=== PATIENT | male | born 1945 | race Caucasian/White ===

== ENCOUNTER → 2016-10-26 | Emergency (ER) | payer MEDICARE, OTHER ==
[~2016-10-26] VITALS: Ht 180.3 cm; Wt 72.6 kg
[~2016-10-26] MED LIST: ACCU CHEK MISC; ACCU-CHEK AVIV1 EAC1 MISC; ACYCLOVIR800 MG PO; ALDARA0.25 GM XX; AMLODIPINE BESY10 MG PO; AMLODIPINE BESYL5 MG PO; ASPIRIN81 MG PO; ATIVAN0.5 MG PO; ATIVAN1 MG PO; BUPROPION XL150 MG PO; CALCIUM 600 +1 EAC1 PO; CEPHALEXIN500 MG PO; CETIRIZINE HCL10 MG PO; CLOTRIMAZOLE-BE15 GM TOP; COZAAR25 MG PO; CVS LUBRICATING15 ML OPTH; CYMBALTA60 MG PO; DESONIDE15 GM TOP; DULOXETINE HCL60 MG PO; FINASTERIDE5 MG PO; FLUTICASONE PRO16 GM NS; LANCET DEVICE1 EACH MISC; LYRICA25 MG PO; LYRICA75 MG PO; METOPROLOL TART50 MG PO; MULTIVITAMINS1 EAC7 PO; NORCO 5-325 TA1 EACH PO; OMEPRAZOLE20 MG PO; PANTOPRAZOLE SO40 MG PO; POTASSIUM CHLO20 MEQ PO; PRAVASTATIN SOD20 MG PO; SEROQUEL25 MG PO; TAMSULOSIN HCL0.4 MG PO; TRAZODONE HCL50 MG PO; VITAMIN D5000 UNIT PO; ZOFRAN ODT4 MG SL
== END ==
LOC: ED 13:20
DX: K52.9 Noninfective gastroenteritis and colitis, unspecified (principal); E78.00 Pure hypercholesterolemia, unspecified; E78.5 Hyperlipidemia, unspecified; F32.9 Major depressive disorder, single episode, unspecified; F41.9 Anxiety disorder, unspecified; I48.91 Unspecified atrial fibrillation; J44.9 Chronic obstructive pulmonary disease, unspecified; K21.9 Gastro-esophageal reflux disease without esophagitis; I12.9 Hypertensive chronic kidney disease with stage 1 through stage 4 chronic kidney disease, or unspecified chronic kidney disease; E11.22 Type 2 diabetes mellitus with diabetic chronic kidney disease; N18.9 Chronic kidney disease, unspecified; E11.40 Type 2 diabetes mellitus with diabetic neuropathy, unspecified; F17.200 Nicotine dependence, unspecified, uncomplicated; Z86.73 Personal history of transient ischemic attack (TIA), and cerebral infarction without residual deficits; Z88.1 Allergy status to other antibiotic agents; Z88.8 Allergy status to other drugs, medicaments and biological substances; Z89.611 Acquired absence of right leg above knee; Z79.899 Other long term (current) drug therapy
CPT/HCPCS: 80053; 85025; 99283

== ENCOUNTER 2017-09-05 16:03 | Emergency (ER) | payer MEDICARE, OTHER ==
[~2017-09-05] VITALS: Ht 180.3 cm; Wt 72.6 kg
[2017-09-05] MEDS ORDERED: REMERON15 MG PO (16:25)
--- NOTE | 2017-09-06 14:14 | EKG ---
[facility] [address] [facility] [place] [address] Signed Normal sinus rhythm Normal ECG When compared with ECG of 04-SEP-2016 21:30, T wave inversion no longer evident in Inferior leads Confirmed by JESUS IVY MD ([id number]) on 09/06/2017 2:13:47 PM Electronically Signed By: JESUS IVY MD 09/06/17 1414 PATIENT NAME: ALBERTO ROLLINS Electrocardiogram DATE OF : 45 PHYSICIAN: JESUS IVY MD REPORT #: [id number] REPORT IS CONFIDENTIAL AND NOT TO BE RELEASED WITHOUT AUTHORIZATION
== END 2017-09-05 18:50 | disposition home or self-care (01) ==
LOC: ED 16:03
DX: R41.0 Disorientation, unspecified (principal); R50.9 Fever, unspecified; E11.9 Type 2 diabetes mellitus without complications; F17.200 Nicotine dependence, unspecified, uncomplicated; Z88.8 Allergy status to other drugs, medicaments and biological substances; Z79.899 Other long term (current) drug therapy
CPT/HCPCS: 71045; 80053; 81001; 83605; 85025; 93005; 93010; 96360; 96361; 99284; J7030

== ENCOUNTER 2017-12-13 17:27 | Inpatient (IN) | payer MEDICARE, OTHER ==
[~2017-12-13] VITALS: Ht 180.3 cm; Wt 84.1 kg
[~2017-12-13 17:27] MED LIST changes: +BUPROPION HCL150 M2 PO; -BUPROPION XL150 MG PO; -COZAAR25 MG PO; +COZAAR50 MG PO; -CVS LUBRICATING15 ML OPTH; +KLOR-CON 1010 MEQ PO; +METOPROLOL TART25 MG PO; -METOPROLOL TART50 MG PO; -MULTIVITAMINS1 EAC7 PO; +MULTIVITAMINS1 EAC8 PO; -POTASSIUM CHLO20 MEQ PO; +REFRESH LIQUIGE15 ML OU; +REMERON15 MG PO; +VITAMIN D1000 UNI1 PO; -VITAMIN D5000 UNIT PO
[2017-12-13] MEDS ORDERED: ASPIR-TRIN325 MG PO (17:37)
[2017-12-13] MEDS ORDERED: FUROSEMIDE40 MG PO (17:38)
[2017-12-13] MEDS ORDERED: LYRICA150 MG PO (17:39)
[2017-12-13] MEDS ORDERED: OMEPRAZOLE20 MG PO (17:40)
[2017-12-13] MEDS ORDERED: PRESERVISION A1 EAC3 PO (17:41)
[2017-12-13] MEDS ORDERED: PROBIOTIC1 EAC3 PO (17:42)
--- NOTE | 2017-12-13 22:30 | NUR ---
PATIENT ARRIVED TO 129 VIA STRETCHER. TRANSFERED TO BED WITH ASSIST FROM HALEY TAPIA AND HALEY GALLO. PATIENT NOW RESTING IN BED, BREATHING IS EVEN AND UNLABORED ON ROOM AIR. ORIENTED TO ALL EXCEPT THE YEAR. CARRANZA PRESENT, DRAINING YELLOW URINE WITH SEDEMENT. IV SITES, INTACT, IVF STARTED. PATIENT DENIES PAIN AT THIS TIME, OTHER THAN OCCASIONAL "PHANTOM PAIN" IN RLE. PATIENT DENIES NEEDS AT THIS TIME. CALL LIGHT WITHIN REACH, BED ALARM ON.
--- NOTE | 2017-12-14 01:13 | NUR ---
PATIENT RESTING COMFORTABLY IN BED, BREATHING IS EVEN AND UNLABORED. DENIES NEEDS AT THIS TIME. CALL LIGHT WITHIN REACH, BED ALARM ON.
--- NOTE | 2017-12-14 01:27 | NUR ---
UPDATED DR. IVY REGARDING PATIENT'S PHANTOM PAIN IN RIGHT LOWER LIMB. PATIENT ALREADY HAS RECEIVED LYRICA, NO NEW ORDERS AT THIS TIME.
--- NOTE | 2017-12-14 04:31 | NUR ---
PATIENT RESTING IN BED, BREATHING IS EVEN AND UNLABORED. DENIES NEEDS AT THIS TIME. CALL LIGHT WITHIN REACH, BED ALARM ON.
--- NOTE | 2017-12-14 07:05 | NUR ---
PATIENT RESTING IN BED, BREATHING IS EVEN AND UNLABORED. CALL LIGHT WITHIN REACH, BED ALARM ON.
--- NOTE | 2017-12-14 08:00 | NUR ---
ASSESSMENT DONE. IS SOMEWHAT CONFUSED TO PLACE, DAY, EVENT,TIME. PATIENT STATES HE HAS BEEN HERE FOR 3 DAYS. TOLD PATIENT HE WAS ADMITTED TO HOSPITAL LAST NIGHT. IS ADAMENT HE WAS ADMITTED [address] IVY IS AWARE. TALKED WITH PATIENT ABOUT PLAN OF CARE, WILL REINFORCE ORIENTATION THROUGH DAY. IS FORGETFUL.
--- NOTE | 2017-12-14 08:30 | NUR ---
DR. IVY HERE TO SEE PATIENT, ORDERS RECIEVED. CARRANZA CATH DC'D, IVF DECREASED TO 75ML/HR.
--- NOTE | 2017-12-14 09:30 | NUR ---
UP TO W/C TO GO TO BR. HAD LARGE FORMED STOOL, BACK TO W/C AND TO BED WITH ASSIST. SPONGE BATH GIVEN WHILE UP.
--- NOTE | 2017-12-14 11:30 | NUR ---
SLEEPING, NO DISTRESS NOTED. IVF PATENT.
--- NOTE | 2017-12-14 11:56 | NUR ---
PT HAS HAD A BUSY, TRYING MORNING. HE IS ASLEEP AT THE MOMENT-RN SKYLAR REQUESTED I NOT WAKE HIM AT THIS TIME. WILL FOLLOW NEEDED
--- NOTE | 2017-12-14 12:00 | NUR ---
AWAKE ASSESSMENT DONE, RATES PAIN 4/10 IN RIGHT LEG. IS COOPERATIVE AT THIS TIME.
--- NOTE | 2017-12-14 12:33 | NUR ---
POSITIVE BLOOD CULTURES RECIEVED. GROWTH OF GRAM POSITIVE COCCI IN ANAEROBIC AND AEROBIC BOTTLE, DR IVY IS AWARE.
--- NOTE | 2017-12-14 12:50 | NUR ---
PATIENT DAUGHTER HERE. UPDATE REGARDING HER FATHERS HEALTH GIVEN. .
--- NOTE | 2017-12-14 13:31 | NUR ---
BLOOD CULTURES x 2 REPEATED.
--- NOTE | 2017-12-14 14:00 | NUR ---
echo being done at bedside.
--- NOTE | 2017-12-14 14:30 | NUR ---
ECHO COMPLETE. PATIENT IS W/O C/O. IVF INFUSING AT 75 ML/HR.
--- NOTE | 2017-12-14 16:00 | NUR ---
ASSESSMENT DONE, NO CHANGES.
--- NOTE | 2017-12-14 17:10 | NUR ---
TYLENOL 500 MG PO GIVEN FOR PAIN RIGHT STUMP.
[2017-12-14] MEDS ORDERED: TYLENOL EXTRA500 MG PO (17:48)
[2017-12-14] MEDS ORDERED: CAPSAICIN42.5 GM TOP (17:50)
[2017-12-14] MEDS ORDERED: COLACE100 MG PO (17:51)
[2017-12-14] MEDS ORDERED: VENTOLIN HFA18 GM INH (17:53)
[2017-12-14] MEDS ORDERED: ZINC OXIDE57 GM TOP (17:54)
--- NOTE | 2017-12-14 17:55 | NUR ---
MED REC COMPLETE
--- NOTE | 2017-12-14 18:00 | NUR ---
TOOK DINNER WELL. C/O PAIN IN R LEG. THIS IS COMES AND GOES.
--- NOTE | 2017-12-14 19:23 | NUR ---
REPORT GIVEN TO NEXT SHIFT.
--- NOTE | 2017-12-14 20:00 | NUR ---
PATIENT SITTING UP IN BED WATCHING TV, BREATHING IS EVEN AND UNLABORED. REPORTS 8/10 PAIN IN RIGHT LIMB AT TIMES. PRN TOPICAL ADMINISTERED. DENIES FURTHER NEEDS. ASSESSMENT AND VITALS DONE. CALL LIGHT WITHIN REACH.
--- NOTE | 2017-12-14 22:00 | NUR ---
PATIENT REPORTS THAT TOPICAL HAS IMPROVED PAIN IN LEG MILDLY, REPORTS CONTINUED PAIN. PRN TYLENOL GIVEN. DENIES FURTHER NEEDS. CALL LIGHT WITHIN REACH.
--- NOTE | 2017-12-15 01:00 | NUR ---
PATIENT RESTING COMFORTABLY IN BED, BREATHING IS EVEN AND UNLABORED. FLACC SCORE OF 0. ASSESSMENT AND VITALS DONE. PATIENT DENIES NEEDS AT THIS TIME. CALL LIGHT WITHIN REACH.
--- NOTE | 2017-12-15 03:27 | NUR ---
PATIENT RESTING IN BED, BREATHING IS EVEN AND UNLABORED. FLACC SCORE OF 0. CALL LIGHT WITHIN REACH.
--- NOTE | 2017-12-15 04:24 | NUR ---
PATIENT RESTING IN BED, BREATHING IS EVEN AND UNLABORED. REPORTS INTERMITTENT 8/10 PAIN IN RIGHT LEG, PRN TYLENOL GIVEN. PATIENT DENIES FURTHER NEEDS. CALL LIGHT WITHIN REACH.
--- NOTE | 2017-12-15 06:30 | NUR ---
LINEN CHANGE DONE DUE TO INCONTINENCE OF URINE. PATIENT TRANSFERED TO WHEELCHAIR WITH 1PA. NOW RESTING IN BED AGAIN, BREATHING IS EVEN AND UNLABORED. DENIES FURTHER NEEDS. CALL LIGHT WITHIN REACH.
--- NOTE | 2017-12-15 08:43 | NUR ---
PT GIVEN 500MG TYLENOL FOR PAIN, AND THEN APPLIED CAPSAICIN CREAM TO RIGHT STUMP FOR PAIN.
--- NOTE | 2017-12-15 09:47 | NUR ---
PT UP IN WC WITH PTOUT TO THE M/S UNIT AND BACK.
--- NOTE | 2017-12-15 10:57 | NUR ---
PT UP TO THE BATHROOM, PASSING GAS AND HAVING AN BM AT THIS TIME. PT IS ABLE TO TRANSFER SELF FROM BED TO WC.
--- NOTE | 2017-12-15 11:25 | NUR ---
PT UP TO BATHROOM HAD BM, BUT PT DOES NOT CLEAN SELF UP WELL. ASSISTATED PT WITH THIS TASK. BACK TO BED AND CALL LIGHT WITHIN REACH. MONITOR REMOVED FROM PT AT THIS TIME ALSO DUE TO PT WILL BE TRANSFERED WITHOUT A TELE.
--- NOTE | 2017-12-15 12:32 | NUR ---
PT DAUGHTER INTO SEE PT AT THIS TIME. ALL QUESTIONS ANSWERED AT THIS TIME.
--- NOTE | 2017-12-15 13:39 | NUR ---
PT APPEARS TO BE SLEEPING AT THIS TIME.
--- NOTE | 2017-12-15 14:35 | NUR ---
PT MEDICATED WITH TYLENOL FOR PAIN AT THIS TIME.
--- NOTE | 2017-12-15 15:31 | NUR ---
PT MEDICATED WITH TYLENOL 500MG PO AND NOW IT APPEARS THAT PT IS ASLEEP A THIS TIME.
--- NOTE | 2017-12-15 16:01 | NUR ---
REPORT CALLED TO DARNELL ALL QUESTIONS ANSWERED AT THIS TIME. PT WILL BE MOVING TO ROOM 116 VIA . ALL PERSONAL BELONGINGS SENT WITH PT.
--- NOTE | 2017-12-15 16:19 | NUR ---
PT WHEELED HIMSELF IN THE WC TO ROOM 116 THEN TRANSFERED SELF TO THE CHAIR. M/S STAFF PRESENT AND ALL ADDITIONAL QUESTIONS ANSWERED.
--- NOTE | 2017-12-15 16:20 | NUR ---
PT ARRIVED TO UNIT VIA WHEELCHAIR AND TRANFERED TO CHAIR W/O DIFFICULTY. VITAL SIGNS OBTAINED. PT A&O X3, HUGO RN REPORTS PT CAN BE FORGETFULL AT TIMES. REPIRATIONS EVEN AND UNLABORED ON ROOM AIR. NO ACUTE DISTRESS NOTED. FULL ASSESSMENT TO BE COMPLETED. PT ASSESSED FOR POSITIONING AND PAIN. REPORTS PAIN 0/10 AFTER DOSE OF TYLENOL. PT ORIENTED TO ROOM, ALL QUESTIONS ANSWERED. DENIES OTHER NEEDS AT THIS TIME. CALL LIGHT WITHIN REACH.
--- NOTE | 2017-12-15 17:30 | NUR ---
PT RESTIG UP IN CHAIR, NO ACUTE CHANGES.
--- NOTE | 2017-12-15 18:41 | NUR ---
PT TO RECEIVE SCHEDULED VANCO AND ROCEPHIN. PT HX OF RIGHT BKA, PRN TYLENOL AND ZOSTRIX OINTMENT TO RIGHT KNEE. WHEELCHAIR BOUND, TRANSFERS TO WHEELCHAIR AND TOLIET W/O DIFFICULTY. ACCU CHECKS WMHS, FSBS RUNNING IN 300'S. TOLERATING ADA DIET, NO NAUSEA. EDEMA TO LEFT LEG, SCD IN PLACE.
--- NOTE | 2017-12-15 20:00 | NUR ---
RECEIVED REPORT AT 1900, FOUND PT SITTING IN CHAIR FINISHING HIS DINNER. PT HAD NO NEEDS AT THAT TIME BUT SEEMED IN A BAD MOOD OVERALL.
--- NOTE | 2017-12-15 20:22 | NUR ---
VITALS AND I&OS DONE AND CHARTED. FRESH ICE WATER GIVEN. BEDSIDE TABLE AND CALL LIGHT IN REACH.
--- NOTE | 2017-12-15 22:00 | NUR ---
V/S ARE WDL. NEW IV WAS STARTED PER PT REQUEST. ALL LOBES ARE CLEAR, ABD SOUNDS ARE PRESENT. PT HAS SOME EDEMA IN LOWER LEFT LEG AND ANKLE. BS WAS 221, PT RECEIVED 3 UNITS OF INSULIN PER ORDER. NO NEW CONCERNS AT THIS TIME.
--- NOTE | 2017-12-15 22:01 | NUR ---
charge nurse rounding note: awake, watching tv, call light and fluids within hands reach, no requests
--- NOTE | 2017-12-16 | NUR ---
PT IS SLEEPING AT THIS TIME.
--- NOTE | 2017-12-16 01:55 | NUR ---
PT ALMOST PULLED OUT HIS IV WHILE SELF-TRANSFERING. IV SITE WAS SAVED FOR NOW. NO OTHER ISSUES NOTED AT THIS TIME.
--- NOTE | 2017-12-16 04:00 | NUR ---
PT IS SLEEPING AT THIS TIME.
--- NOTE | 2017-12-16 05:44 | NUR ---
AT START OF SHIFT IV SITE WAS CHANGED PER PT REQUEST. PT AT ONE TIME ALMOST PULLED HIS IV OUT WHILE SELF TRANSFERING. ALL LOBES ARE CLEAR, ABD SOUNDS ARE PRESENT, URINE OUTPUT IS ADEQUATE. NO NEW ISSUES NOTED. EDEMA IN LEFT LOWER LEG +2. V/S ARE WDL SO FAR.
--- NOTE | 2017-12-16 07:00 | NUR ---
REPORT RC'D FROM LINING PRESSER NURSE KALINA. PT UP IN BED WATCHING TV, REQUESTING KLENEX, PROVIDED. DENIES OTHER NEEDS. CALL LIGHT WITHIN REACH.
--- NOTE | 2017-12-16 08:00 | NUR ---
PT RESTING COMFORTABLY IN BED. REQUESTING PRN TYLENOL FOR PHANTOM PAIN, 500MG GIVEN, ALL MORNING MEDS GIVEN. PT NOTED TO BE FORTGETFUL AT TIMES AND DISORIENTED TO TIME, REORIENTED. VERBALIZATIONS CLEAR AND RESPONDS APPROPRIATELY. RHYTHM REGULAR, TAP GRINDER LESS THAN 3 SECS, LLE PULSE +1, BILATERAL UPPER PEROPHERAL PULSES +2, +2 EDEMA NOTED TO LLE, SCD TO LLE, N/T BLE AT BASELINE. RESPIRATIONS EVEN AND UNLABORED, LUNGS CLEAR THROUGHOUT ALL ODOM, NO COUGH NOTED. ABD SOFT NON TENDER, DENIES NAUSEA, TOLERATING ADA DIET. VOIDING QS, BEDSIDE URINAL, DUE FOR BM. WHEELCHAIR BOUND AND ABLE TO SELF TRANSFER NEEDED. LF IV SITE NOTED TO BE INFILTRATED, DC'D WNL, NEW SITE TO BE PLACED. DENIES OTHER NEEDS. BREAKFAST AT BEDSIDE. CALL LIGHT WITHIN REACH.
--- NOTE | 2017-12-16 10:00 | NUR ---
CALL LIGHT ANSWERED. PT REQUESTING TO HAVE OINTMENT APPLIED TO RLE. PRN OINTMENT APPLIED TO RLE. PT ASSESSED FOR PAIN AND POSITIONING. DENIES OTHER NEEDS. CALL LIGHT WITHIN REACH.
--- NOTE | 2017-12-16 10:05 | NUR ---
pt is resting in the bed safely with call light in reach. pt asked for more ice water. pt agreed to shower but would like to wait until after lunch
--- NOTE | 2017-12-16 11:50 | NUR ---
FSBS OBTAINED AND NOTED TO BE 179, 3 UNITS INSULIN GIVEN. DENIES PAIN AT THIS TIME. NO ACUTE CHANGES. LUNCH PROVIDED. CALL LIGHT WITHIN REACH.
--- NOTE | 2017-12-16 13:10 | NUR ---
PT UP IN CHAIR WATCHING GOLF. NO ACUTE CAHNGES. PT REQUESTING TO SHOWER IN THE EVENING. DENIES OTHER NEEDS. CALL LIGHT WITHIN REACH.
--- NOTE | 2017-12-16 14:12 | NUR ---
pt is sitting up in bed resting safely with call light in reach. pt said he wanted to take a nap then he would be ready to shower. shower is all set up pt will call when he is ready.
--- NOTE | 2017-12-16 15:00 | NUR ---
PT RESTING IN WHEELCHAIR. NO ACUTE CHANGES. DENIES OTHER NEEDS.
--- NOTE | 2017-12-16 17:00 | NUR ---
pt showered independently only needed set up help and IV wrapped. linens were changed
--- NOTE | 2017-12-16 17:20 | NUR ---
PT RESTING IN CHAIR AFTER SHOWER. PT REPORTS IV SITE FELL OUT DURING SHOWER, NEW SITE TO BE ESTABLISHED. PT REQUESTING TO REST. DENIES OTHER NEEDS.
--- NOTE | 2017-12-16 18:14 | NUR ---
pt is sitting up in his personal wheelchair, call light in reach.
--- NOTE | 2017-12-16 18:28 | NUR ---
PATIENT DENIES NEEDS AT THIS TIME, SHE ATE 100% OF HER DINNER AT THIS TIME.
--- NOTE | 2017-12-16 18:31 | NUR ---
PT'S PAIN WELL MANAGED TODAY WITH SINLGE DOSE TYLENOL AND ZOSTRIX OINTMENT. VANCO DC'D AND ROCEPHINE STRATED. PT CONTINUES TO HAVE ISSUES WITH IV SITES, NEW SITE ESTABLISHED. PT SELF TRANSFER TO CHAIR AND TOILET. LR INFUSING AT 75 ML/HR. TOLERATING ADA DIET. DENIES NAUSEA. PT ABLE TO HAVE SHOWER THIS EVENING.
--- NOTE | 2017-12-16 19:15 | NUR ---
BEDSIDE REPORT RECEIVED FROM OFFGOING RN. PT RESTING IN BED AWAKE, WATCHING TV. CALL LIGHT WITHIN REACH.
--- NOTE | 2017-12-16 21:32 | NUR ---
PT RESTING IN BED WATCHING TV. PT EXPRESSES CONCERN THAT IV TUBING IS NOT LONG ENOUGH, PT WOULD LIKE IV POLE MOVED TO OTHER SIDE OF THE BED. TOLD PT IV POLED COULD BE MOVED. PT ASKED FOR DRESSING TO IV BE TAKEN OFF AND TUBING REPOSITIONED. REASSURANCE/EDUCATION PROVIDED TO PT REGARDING LEAVING DRESSING IN PLACE THAT RN HAD JUST PLACED WHEN STARTING IV. PT CONTINUES TO PERSEVERATE ON ANGLE OF IV TUBING. PT EXPRESSES CONCERN THE TUBING IS "COMPLETELY KINKED". PT REASSURED THAT IV PUMP WILL NOT CONINTUE TO PUMP FLUIDS IF TUBING IS KINKED. COBAN APPLIED TO IV TUBING IN ATTEMPT TO REMOVE "KINK" FROM LINE. PT ASSESSMENT COMPLETE. PT RATES PAIN 4-5/10 IN THE RLE. PRN CREAM APPLIED TO LEG. PT DENIES SOB OR NAUSEA AT THIS TIME. EDEMA NOTED TO LLE, 2+, WELL SLIGHT REDNESS AND FLAKING SKIN. PT STATES THIS IS NORMAL FOR HIM. PT DECLINES TO HAVE SCD'S IN PLACE. PT DENIES FURTHER NEEDS AT THIS TIME. CALL LIGHT AT PT'S BEDSIDE, PT AGREES TO USE FOR NEEDS.
--- NOTE | 2017-12-16 22:33 | NUR ---
PT RESTING IN BED WITH EYES CLOSED. RESPIRATIONS EVEN AND UNLABORED. PT DOES NOT WAKE WHILE PATCH WASHER IN DOORWAY. CALL LIGHT WITHIN REACH. IV FLUIDS INFUSING.
--- NOTE | 2017-12-16 22:43 | NUR ---
charge nurse rounding note: awake, watching tv, no c/o pain, no request, repositions self in bed, call light and fluids at bedside
--- NOTE | 2017-12-17 00:24 | NUR ---
PT RESTING IN BED ON HIS R SIDE. EYES CLOSED, RESPIRATIONS ARE EVEN AND UNLABORED. PT APPEARS TO BE SLEEPING. PT DOES NOT WAKE WHILE MANAGER ORDER IN DOORWAY. IV FLUIDS ARE INFUSING. CALL LIGHT WITHIN PT REACH.
--- NOTE | 2017-12-17 02:16 | NUR ---
PT ASSESSMENT COMPLETE. PT DENIES PAIN AT THIS TIME, STATES, "I'M FINE". PT HAS EXPIRATORY WHEEZE NOTED THROUGHOUT, CLEARS WITH COUGH. LLE CONTINUES TO BE WARM TO TOUCH, EDEMA 2+. PT DENIES NEEDS AT THIS TIME. CALL LIGHT WITHIN REACH.
--- NOTE | 2017-12-17 04:46 | NUR ---
PT SLEPT MAJORITY OF SHIFT. PAIN TO RLE STUMP X1. PRN ZOSTRIX CREAM APPLIED. PT USING URINAL TO VOID. UO QS. LLE WITH 2+ EDEMA, SLIGHT REDNESS AND WARMTH NOTED. IV TKO. ROCEPHIN. 1 PA, PT SELF TRANSFERS TO . PT SLIGHTLY AGITIATED AT BEGINNING OF SHIFT, WANTED IV DRESSING TAKEN DOWN AND ANGLE OF TUBING READJUSTED.
--- NOTE | 2017-12-17 07:00 | NUR ---
REPORT RC'D FROM TAX SERVICES MANAGER NURSE SHELBY. PT RESTING IN BED WITH EYES CLOSED, RESPIRATIONS EVEN AND UNLABORED, NO ACUTE DISTRESS NOTED.
--- NOTE | 2017-12-17 07:40 | NUR ---
PATIENT RESTING IN BED, EYES CLOSED. PATIENT DID NOT AWAKE WHEN THIS CAMP DINING ROOM ATTENDANT ENTERED ROOM, BUT DID AWAKE WHEN SPOKEN TO. PATIENT REQUESTING TO REST A LITTLE LONGER. CALL LIGHT IN REACH. AM CARE SET UP FOR A LATER TIME. NO OTHER NEEDS AT THIS TIME.
--- NOTE | 2017-12-17 08:00 | NUR ---
FULL ASSESSMENT OT BE COMPLETED, SEE DOCUMENTATION. ALL MORNING MEDICATIONS ADMINISTERED. PT REQUESTING PRN TYLENOL, GIVEN. DENIES OTHER NEEDS. CALL LIGHT WITHIN REACH.
--- NOTE | 2017-12-17 09:56 | NUR ---
PATIENT RESTING IN BED, CALL LIGHT IN REACH, NO OTHER NEEDS AT THIS TIME.
--- NOTE | 2017-12-17 10:00 | NUR ---
PT RESTING IN BED WATCHING TV. DENIES OTHER NEEDS. NO ACUTE CHANGES.
--- NOTE | 2017-12-17 10:19 | NUR ---
ELISSA SOLANO REPORTED TO THIS RN THAT PT'S BP WAS LOWER THAN TREND. THIS RN IN ROOM TO REASSESS PT'S BP. BP 129/78, MAP 90, PULSE 72, SPO2 93% ON RA. PT DENIES ANY UNUSUAL SYMPTOMS. PT OFFERED BREAKFAST, REFUSED, PROVIDED EDUCATION ON INTAKE AND DIET, PT AGREEABLE TO GLUCERNA, PROVIDED. DENIES OTHER NEEDS. CALL LIGHT WITHIN REACH.
--- NOTE | 2017-12-17 11:46 | NUR ---
PT WAS HERE FOR OUTPATIENT VANCO. HERE WITH SON. AMBULATED TO ROOM WITH FWW WNL. VS STABLE. PICC FLUSHED WELL WITH BLOOD RETURN. PT DENIED PAIN OR SWELLING. DRESSING INTACT. ALEXANDRO DE LEON DID HEP LOCK AND DISCHARGE VITALS ALL STABLE AND WNL.
--- NOTE | 2017-12-17 12:00 | NUR ---
AFTERNOON MEDICATION ADMINISTERED. LUNCH AT BEDSIDE. NO ACUTE CHANGES.
--- NOTE | 2017-12-17 14:40 | NUR ---
PT REQUESTING TO HAVE TKO FLUIDS STOPED AT THIS TIME. PT KNOWN TO BE A "HARD STICK," MULTI IV ATTEMPTS AND LOSS OF SITES. ADVISED PT OF TKO FLUID PURPOSE AND POSSIBLE LOSS OF IV ACCESS, PT VERBALZIED UNDERSTANDING AND REQUESTING BREAK. TKO FLUIDS STOPPED AT THIS TIME. WILL CONTINUE TO MONITOR.
--- NOTE | 2017-12-17 14:41 | NUR ---
pateint resting, took vital signs, refilled ice water, he needed no other assistance at this time
--- NOTE | 2017-12-17 16:30 | NUR ---
PT RESTING IN BED, NEW GOWN AND LINENS PLACED. TKO FLUID PLACED AT THIS TIME. IV SITE NOTED TO HAVE INCREASED DIFFICULTY WITH FLUSHING, 20 ML NS FLUSH, PATENT. PT REQUESTING TO HAVE WRAP PLACED. WRAP PLACED AT THIS TIME. DENIES OTHER NEEDS. CALL LIGHT WITHIN REACH.
--- NOTE | 2017-12-17 16:30 | NUR ---
PT NOTED TO HAVE URINE SOAKED GOWN. ASSESSED PT'S SKIN, PT UNWILLING TO ALLOW RN TO ASSESS SKIN, EDUCATION PROVIDED, PT VERBALIZED FEELINGS OF INSECURITY, REASSURRED PT. PT ALLOWED THIS RN TO ASSESS SKIN, LARGE AMOUNT OF URINE NOTED ON GOWN AND BED, ADVISED TO SHOWER AT THIS TIME, PT REFUSED, EDUCATION PROVIDED, PT AGREEABLE TO SHOWER AT THIS TIME. PT ASSISSTED TO RESTROOM. WILL CONTINUE TO MONITOR.
--- NOTE | 2017-12-17 17:00 | NUR ---
CALL LIGHT ANSWERED, PT REQUESTING TO HAVE ZOSTRIX OINTMENT APPLIED, COMPLETED. DENIES OTHER NEEDS AT THIS TIME.
--- NOTE | 2017-12-17 19:05 | NUR ---
OVERALL PT HAD A GOOD DAY. PAIN WELL MANAGED. TOLERATING ADA DIET. SCHEDULED ACCU CHECKS, SLIDING SCALE INSULIN. PT NO AGREEABLE TO ASSESSMENT OR INTERVENTION AT TIMES, REINFORCE EDUCATION. MONITOR FOR SKIN BREAKDOWN DUE TO INCREASED URINE OUTPUT. PT TO CONTINUE SUMMER'D ABX.
--- NOTE | 2017-12-17 22:01 | NUR ---
COOP WITH ASSESSMENT, CAPSIN OINTMENT TO R STUMP AT THIS REQUEST
--- NOTE | 2017-12-17 23:47 | NUR ---
RESTING, EYES CLOSED, NO C/O PAIN, IVF INFUSING TO TKO PATENT, USES URINAL, NO FURTHER C/O RBK PHANTOM PAIN, CALL LIGHT WITHIN HANDS REACH. TURNS SELF IN BED
--- NOTE | 2017-12-18 01:10 | NUR ---
RESTING, NO C/O PAIN OR RESP DISTRESS NOTED. USED URINAL, VOIDING CLEAR YELLOW URINE, NO FURTHER C/O PHANTOM PAIN RBA. IVF INFUSING AT TKO. NO C/O ADVERSE REACTION TO HIGH OR LOW BS. LEFT LEG DECREASED REDNESS, TRANSFERS SELF IN BED, CALL LIGHT AT HANDS REACH
--- NOTE | 2017-12-18 01:27 | NUR ---
INCONTINENT OF URINE, WHOLE BED CHANGED, MARK ATTENDS IN PLACE. USES URINAL
--- NOTE | 2017-12-18 04:05 | NUR ---
PATIENT RESTING ON HIS RIGHT SIDE QUIETLY. EYES CLOSED, RESPIRATIONS EVEN AND REGULAR. CALL LIGHT IN REACH.
--- NOTE | 2017-12-18 06:58 | NUR ---
PATIENT SLEPT WELL EXCEPT FOR ONE LARGE SPILL OF HIS URINAL IN THE BED FOR WHICH HE WAS CLEANED UP.
--- NOTE | 2017-12-18 09:34 | NUR ---
PT SLEEPING SOUNDLY UPON ENTERING ROOM. AWOKE EASILY TO VOICE. PT ALERT AND ORIENTED. DENIES PAIN OR OTHER CONCERNS THIS MORNING. IV INFUSING IN RIGHT HAND. PT EATING BREAKFAST INDEPENDENTLY. USING URINAL. CALL LIGHT WITHIN REACH.
--- NOTE | 2017-12-18 09:46 | NUR ---
PATIENT RESTIN IN BED. PATIENT ASKS FOR LINENS CHANGE. LINENS CHANGED. ICE WATER GIVEN. CALL LIGHT WITHIN REACH. NO OTHER NEEDS AT THIS TIME.
--- NOTE | 2017-12-18 12:23 | NUR ---
PT SITTING UP IN BED EATING LUNCH INDEPENDENTLY. ADMINISTERED MEAL TIME INSULIN PER SLIDING SCALE. PT DENIES NEEDS OR CONCERNS AT THIS TIME. LUNCH TRAY REMOVED. CALL LIGHT WITHIN REACH.
--- NOTE | 2017-12-18 13:18 | NUR ---
PATIENT RESTING IN BED. VITALS AND I&O DONE. CALL LIGHT WITHIN REACH. NO OTHER NEEDS AT THIS TIME.
--- NOTE | 2017-12-18 15:17 | NUR ---
PT SITTING UP IN BED WATCHING TV. REPORTS "JUST NAPPING" OFF AND ON. PT PREFERS [employer], [employer]ODUCTION ASSIST[employer] AND CHARGE AWARE. DENIES NEEDS OR CONCERNS AT THIS TIME. CALL LIGHT WITHIN REACH.
--- NOTE | 2017-12-18 15:54 | NUR ---
PATIENT CALLS FOR PAIN MEDICINE. RN NOTIFIED. NO OTHER NEEDS AT THIS TIME.
--- NOTE | 2017-12-18 16:54 | NUR ---
THIS RN ASSUMING CARE FOR PT. THIS RN TO ROOM FOR AFTERNOON ASSESSMENT, MEDICATION, AND CBG. PT STATES HE HAS 5/10 PHANTOM PAIN BUT "JUST HAD MY MEDICATION." PIV ASSESSED, RIGHT WRIST VERY SWOLLEN AT IV SITE, PAIN WITH FLUSHING. PIV DC'D PER PROTOCOL. NEW PIV STARTED PER PROTOCOL IN LEFT FOR ARM. INFUSING LR AT TKO. MEDICATIONS GIVEN (SEE MAR). CBG TAKEN. PT WATCHING TV. NO REQUESTS OR COMPLAINTS AT THIS TIME. BED RAILS UP. CALL LIGHT WITHIN REACH.
--- NOTE | 2017-12-18 18:03 | NUR ---
PT HERE FOR SPESIS R/T CELLULITIS. 1P SBA. CBG CHECKS AND SS INSULIN. R BKA - CAPSACIN CREAM FOR PHANTOM PAIN. ANTICIPATING DISCHARGE TOMORROW. PT USES CALL LIGHT APPROPRIATLY.
--- NOTE | 2017-12-18 18:23 | NUR ---
THIS RN TO ROOM TO CHECK ON PT. PT CONTINUES TO RATE PHANTOM PAIN AT 5/10 BUT STATES HE DOES NOT WANT ADDITIONAL PAIN MEDICATION AT THIS TIME. "ILL JUST WAIT A BIT." BED RAILS UP. CALL LIGHT WITHIN REACH.
--- NOTE | 2017-12-18 20:49 | NUR ---
PT ASSESSMENT COMPLETED. PT RESTING IN BED, CALL LIGHT IN REACH. PRN TYLENOL ADMINISTERED FOR REPORT OF 5/10 PAIN. CAPSACIN ALSO APPLIED TO RLE. FRESH ICE WATER PROVIDED.
--- NOTE | 2017-12-18 21:33 | NUR ---
pt resting supine in bed watching tv, appears comfortable. call light and h20 inreach. urinal emptied of 200mls clear yellow urine. no needs voiced.
--- NOTE | 2017-12-18 22:40 | NUR ---
pt resting supine in bed, eyes closed and respirations even and unlabored. pt appears to be sleeping comfortably. call light and h20 in reach.
--- NOTE | 2017-12-19 00:18 | NUR ---
PT RESTING ON LEFT LATERAL SIDE, RESPIRATIONS VISABLE. CALL LIGHT AND H2O IN REACH. PT APPEARS TO BE SLEEPING COMFORTABLY.
--- NOTE | 2017-12-19 02:09 | NUR ---
PT RESTING ON LEFT LATERAL SIDE, RESPIRATIONS ARE EVEN AND UNLABORED. PT APPEARS TO BE SLEEPING COMFORTABLY. PT ALERT TO VOICE AND ASSESSMENT COMPLETED. CALL LIGHT AND H20 IN REACH AND PT ENCOURAGED TO DRINK MORE FLUIDS. NO CONCERNS OR REQUESTS VOICED.
--- NOTE | 2017-12-19 06:17 | NUR ---
PT RESTING ON LEFT LATERAL SIDE, RESPIRATIONS EVEN AND UNLABORED, PT ALERT TO VOICE STATES "NOW WHAT ARE YOU DOING IN HERE AT THIS TIME WAKING ME UP?" PT REMINDED THAT HE HAS ASSESSMENTS AND VS'S SCHEDULED. "ALRIGHT LETS GET THIS OVER WITH". ASSESSMENT COMPLETED, VSS. PT ENCOURAGED TO DRINK MORE FLUIDS. CALL LIGHT AND H20 IN REACH. NO NEEDS VOICED.
--- NOTE | 2017-12-19 07:15 | NUR ---
RECEIVED REPORT FROM HALEY SALAZAR. PT IN BED. IVF INFUSING WNL. ADA, 1800 BENITO DIET.
--- NOTE | 2017-12-19 08:43 | NUR ---
ASSESSMENT COMPLETE. PT AWAKE, SITTING UP IN BED. IV ABX ADMINISTERED. IVF INFUSING TKO. PRN PAIN MEDICATION ADMINISTERED FOR PAIN 6/10 IN RLE. CBG 155, 1 UNIT SS INSULIN ADMINISTERED. 2+ EDEMA IN LEFT LOWER EXTREMITY. ICE WATER GIVEN. SCD IN PLACE.
[2017-12-19] MEDS ORDERED: KEFLEX500 MG PO (09:37)
--- NOTE | 2017-12-19 10:33 | NUR ---
PATIENT IN BED WATCHING TV. PHARMASIST IN ROOM. CALL LIGHT IN REACH. NO FURTHER NEEDS AT THIS TIME.
--- NOTE | 2017-12-19 12:31 | NUR ---
IN ROOM TO DISCUSS DC EDUCATION. DC INFORMATION GIVEN TO PT. PT EDUCATED ON ABX INFORMATION. ALL PT QUESTIONS ANSWERED. VITALS COMPLETE. PT WAITING FOR RIDE TO ARRIVE.
--- NOTE | 2017-12-19 13:47 | NUR ---
PT DRESSED AND READY FOR DC. HE HAD A BIG SMILE ON HIS FACE AND STATED HE FEELS SO MUCH BETTER! PT IS WAITING FOR HIS RIDE, EXTENDED A BLESSING WILL FOLLOW NEEDED
--- NOTE | 2017-12-19 16:03 | NUR ---
FAXED DC SUMMARY TO [facility], RECIEVED FAX CONFIRMATION.
== END 2017-12-19 13:00 | disposition home or self-care (01) | DRG 872 ==
LOC: ED 17:27 → CCU 22:04 → MS 12-15 16:20
PROVIDERS: ADMIT Internal Medicine
DX: A40.1 Sepsis due to streptococcus, group B (principal); B37.49 Other urogenital candidiasis; L03.116 Cellulitis of left lower limb; I10 Essential (primary) hypertension; K21.9 Gastro-esophageal reflux disease without esophagitis; E78.5 Hyperlipidemia, unspecified; G89.4 Chronic pain syndrome; F41.8 Other specified anxiety disorders; N31.9 Neuromuscular dysfunction of bladder, unspecified; N39.498 Other specified urinary incontinence; Z89.611 Acquired absence of right leg above knee; E11.40 Type 2 diabetes mellitus with diabetic neuropathy, unspecified; I73.9 Peripheral vascular disease, unspecified; I48.91 Unspecified atrial fibrillation; J44.9 Chronic obstructive pulmonary disease, unspecified; Z86.73 Personal history of transient ischemic attack (TIA), and cerebral infarction without residual deficits; G31.84 Mild cognitive impairment of uncertain or unknown etiology; N40.1 Benign prostatic hyperplasia with lower urinary tract symptoms
CPT/HCPCS: 36415; 51702; 71045; 74177; 80053; 80202; 81001; 83036; 83605; 83735; 85025; 87040; 87077; 87088; 87186; 93306; 96365; 97162; 97166; 97530; 99285; J0692; J0696; J1815; J3370; J3475; J7030; J7050; J7120; Q9967

== ENCOUNTER 2018-08-18 12:54 | Emergency (ER) | payer MEDICARE, OTHER ==
[~2018-08-18] VITALS: Ht 180.3 cm; Wt 86.4 kg
[~2018-08-18 12:54] MED LIST changes: +ASPIR-TRIN325 MG PO; +BACTRIM DS TAB1 EACH PO; +CAPSAICIN42.5 GM TOP; +COLACE100 MG PO; +FUROSEMIDE40 MG PO; +KEFLEX500 MG PO; +LYRICA150 MG PO; +METFORMIN HCL500 MG PO; +PREORBOTIC CAP1 EACH PO; +PRESERVISION A1 EAC3 PO; +PRESERVISION A1 EACH PO; +PROBIOTIC1 EAC3 PO; +TYLENOL EXTRA500 MG PO; +VENTOLIN HFA18 GM INH; +ZINC OXIDE57 GM TOP
--- NOTE | 2018-08-19 16:36 | EKG ---
[facility] [address] [place], [place] [address] Signed Normal sinus rhythm ST elevation, probably due to early repolarization Borderline ECG When compared with ECG of 18-JAN-2018 20:38, Criteria for Septal infarct are no longer present ST elevation now present in Inferior leads Confirmed by KONSTANTIN CERNA DO ([id number]) on 08/19/2018 4:36:18 PM Electronically Signed By: KONSTANTIN CERNA DO 08/19/18 1636 PATIENT NAME: ALBERTO ROLLINS Electrocardiogram DATE OF : 45 PHYSICIAN: KONSTANTIN CERNA DO REPORT #: [id number] REPORT IS CONFIDENTIAL AND NOT TO BE RELEASED WITHOUT AUTHORIZATION
== END 2018-08-18 21:53 | disposition short-term general hospital (02) ==
LOC: ED 12:54
DX: I48.91 Unspecified atrial fibrillation (principal); N39.0 Urinary tract infection, site not specified; I12.9 Hypertensive chronic kidney disease with stage 1 through stage 4 chronic kidney disease, or unspecified chronic kidney disease; E11.22 Type 2 diabetes mellitus with diabetic chronic kidney disease; N18.9 Chronic kidney disease, unspecified; J44.9 Chronic obstructive pulmonary disease, unspecified; Z88.8 Allergy status to other drugs, medicaments and biological substances; Z88.1 Allergy status to other antibiotic agents; Z79.899 Other long term (current) drug therapy; Z79.82 Long term (current) use of aspirin; Z79.84 Long term (current) use of oral hypoglycemic drugs
CPT/HCPCS: 36415; 71045; 80053; 81001; 84484; 85025; 93005; 93010; 96361; 96365; 96366; 96375; 96376; 99285-25; J0696; J2704; J7040

== ENCOUNTER 2019-04-13 09:02 | Inpatient (IN) | payer MEDICARE, OTHER ==
[~2019-04-13] VITALS: Ht 180.3 cm; Wt 76.7 kg
[~2019-04-13 09:02] MED LIST changes: +OMEPRAZOLE40 MG PO
--- OUTSIDE RECORDS SUMMARY | 2019-04-13 09:04 | XMS ---
PreManage Notification: ALBERTO ROLLINS Security Dolly Operator Events No recent Security Events currently on file CRITERIA MET - History of Sepsis Dx CARE PROVIDERS Rakel Wang Javascript Engineer/Retail Salesman 08/25/2016-Current PHONE: [phone] Rakel Wang Primary Care 08/25/2016-Current PHONE: [phone] Mya Beck Primary Care 08/25/2016-Current PHONE: [phone] Doe Plummer Current PHONE: Unknown Bryanna has no Care Guidelines for this patient. Shaji VISIT COUNT (12 MO.) 2 LEONA Gil TOTAL 2 NOTE: Visits indicate total known visits. ED/UCC VISIT TRACKING (12 MO.) 04/13/2019 09:02 [facility] [place] TYPE: Emergency COMPLAINT: - ALTERED LOC 08/18/2018 12:56 [facility] [place] TYPE: Emergency COMPLAINT: - CONGESTION/RIGHT SIDE PAIN/FEVER DIAGNOSES: - 1 Type 2 diabetes mellitus w diabetic chronic kidney disease - Urinary tract infection, site not specified - Chronic obstructive pulmonary disease, unspecified - terminal press operator (current) use of oral hypoglycemic drugs - Allergy status to other antibiotic agents status - Unspecified atrial fibrillation - Chest pain, unspecified - 1 Hypertensive chronic kidney disease w stg 1-4/unsp chr kdny - Other equipment operator intermodal yard (current) drug therapy - Allergy status to oth drug/meds/biol subst status - Chronic kidney disease, unspecified - halfway (current) use of aspirin INPATIENT VISIT TRACKING (12 MO.) 08/18/2018 22:38 [facility] TYPE: Surgical Services DIAGNOSES: - Unspecified atrial fibrillation - Essential (primary) hypertension - Acute cystitis without hematuria - 1 Type 2 diabetes mellitus with unspecified complications [email or web address]
[2019-04-13] MEDS ORDERED: BAYER CHEWABLE81 MG PO (09:37)
[2019-04-13] MEDS ORDERED: BUPROPION XL300 MG PO (09:38)
[2019-04-13] MEDS ORDERED: ZYRTEC10 MG PO (09:39)
[2019-04-13] MEDS ORDERED: ELIQUIS5 MG PO (09:41)
[2019-04-13] MEDS ORDERED: FUROSEMIDE20 MG PO (09:42)
[2019-04-13] MEDS ORDERED: LOSARTAN POTASS25 MG PO (09:43)
[2019-04-13] MEDS ORDERED: PRAVASTATIN SOD40 MG PO (09:46)
[2019-04-13] MEDS ORDERED: PRESERVISION A1 EAC3 PO (09:48)
[2019-04-13] MEDS ORDERED: METFORMIN HCL500 M1 PO (12:59)
--- NOTE | 2019-04-13 14:53 | EKG ---
[facility] [address] [place], [place] [address] Signed Sinus tachycardia Otherwise normal ECG When compared with ECG of 18-AUG-2018 16:50, (Unconfirmed) Sinus rhythm has replaced Atrial fibrillation Confirmed by RITCHIE RAYMOND MD ([id number]) on 04/13/2019 2:53:43 PM Electronically Signed By: RITCHIE RAYMOND MD 04/13/19 1453 PATIENT NAME: RIAALBERTO GEE Electrocardiogram DATE OF : 45 PHYSICIAN: RITCHIE RAYMOND MD REPORT #: [id number] REPORT IS CONFIDENTIAL AND NOT TO BE RELEASED WITHOUT AUTHORIZATION
[2019-04-16] MEDS ORDERED: LEVOFLOXACIN750 MG PO (11:08)
[2019-04-16] MEDS ORDERED: NICORETTE4 M2 BUCCAL (11:09)
== END 2019-04-16 14:00 | disposition home or self-care (01) | DRG 194 ==
LOC: ED 09:02 → MS 12:03
PROVIDERS: ADMIT Internal Medicine
DX: J13 Pneumonia due to Streptococcus pneumoniae (principal); K52.1 Toxic gastroenteritis and colitis; T36.95XA Adverse effect of unspecified systemic antibiotic, initial encounter; I48.0 Paroxysmal atrial fibrillation; I25.10 Atherosclerotic heart disease of native coronary artery without angina pectoris; R13.10 Dysphagia, unspecified; E78.5 Hyperlipidemia, unspecified; E11.40 Type 2 diabetes mellitus with diabetic neuropathy, unspecified; F41.8 Other specified anxiety disorders; N40.1 Benign prostatic hyperplasia with lower urinary tract symptoms; R33.8 Other retention of urine; N31.9 Neuromuscular dysfunction of bladder, unspecified; G31.84 Mild cognitive impairment of uncertain or unknown etiology; G47.00 Insomnia, unspecified; I12.9 Hypertensive chronic kidney disease with stage 1 through stage 4 chronic kidney disease, or unspecified chronic kidney disease; E11.22 Type 2 diabetes mellitus with diabetic chronic kidney disease; N18.9 Chronic kidney disease, unspecified; E11.51 Type 2 diabetes mellitus with diabetic peripheral angiopathy without gangrene; J44.9 Chronic obstructive pulmonary disease, unspecified; K21.9 Gastro-esophageal reflux disease without esophagitis; G89.4 Chronic pain syndrome; G54.6 Phantom limb syndrome with pain; Y92.239 Unspecified place in hospital as the place of occurrence of the external cause; Z89.611 Acquired absence of right leg above knee; Z86.73 Personal history of transient ischemic attack (TIA), and cerebral infarction without residual deficits; Z88.8 Allergy status to other drugs, medicaments and biological substances; Z88.1 Allergy status to other antibiotic agents; Z79.01 Long term (current) use of anticoagulants; Z79.84 Long term (current) use of oral hypoglycemic drugs; Z79.82 Long term (current) use of aspirin; Z79.899 Other long term (current) drug therapy
CPT/HCPCS: 36415; 51702; 70450; 71045; 80048; 80053; 81001; 83605; 83735; 84484; 85025; 85610; 85730; 87502; 93005; 93010; 94760; 97110; 97162; 97165; 99291; 99292; G0480; J1815; J1956; J7030

== ENCOUNTER 2019-04-19 08:06 | Emergency (ER) | payer MEDICARE, OTHER ==
[~2019-04-19] VITALS: Ht 180.3 cm; Wt 76.9 kg
[~2019-04-19 08:06] MED LIST changes: +BAYER CHEWABLE81 MG PO; +BUPROPION XL300 MG PO; +ELIQUIS5 MG PO; +FUROSEMIDE20 MG PO; +LEVOFLOXACIN750 MG PO; +LOSARTAN POTASS25 MG PO; +METFORMIN HCL500 M1 PO; +NICORETTE4 M2 BUCCAL; +PRAVASTATIN SOD40 MG PO; +ZYRTEC10 MG PO
--- OUTSIDE RECORDS SUMMARY | 2019-04-19 08:08 | XMS ---
PreManage Notification: ALBERTO ROLLINS Security Necktie Turner Events No recent Security Events currently on file CRITERIA MET - History of Sepsis Dx - [facility] - 2 Visits in 30 Days CARE PROVIDERS LIZET SRIVASTAVA Nurse Practitioner 04/15/2019-Current PHONE: [phone] Rakel Wang Sub Plant Manager/Business Computers Teacher 08/25/2016-Current PHONE: [phone] Rakel Wang Primary Care 08/25/2016-Current PHONE: [phone] Doe Plummer Current PHONE: Unknown Bryanna has no Care Guidelines for this patient. Shaji VISIT COUNT (12 MO.) 3 LEONA Gil TOTAL 3 NOTE: Visits indicate total known visits. ED/UCC VISIT TRACKING (12 MO.) 04/19/2019 08:07 [facility] [place] TYPE: Emergency COMPLAINT: - COUGH, SWALLOWING PROBLEM 04/13/2019 09:02 [facility] [place] TYPE: Emergency COMPLAINT: - ALTERED LOC 08/18/2018 12:56 [facility] [place] TYPE: Emergency COMPLAINT: - CONGESTION/RIGHT SIDE PAIN/FEVER DIAGNOSES: - 1 Type 2 diabetes mellitus w diabetic chronic kidney disease - Urinary tract infection, site not specified - Chronic obstructive pulmonary disease, unspecified - nursing home (current) use of oral hypoglycemic drugs - Allergy status to other antibiotic agents status - Unspecified atrial fibrillation - Chest pain, unspecified - 1 Hypertensive chronic kidney disease w stg 1-4/unsp chr kdny - Other remote computer terminal operator (current) drug therapy - Allergy status to oth drug/meds/biol subst status - Chronic kidney disease, unspecified - remote computer terminal operator (current) use of aspirin INPATIENT VISIT TRACKING (12 MO.) 04/13/2019 12:03 [facility] [place] TYPE: Medical Surgical COMPLAINT: - PNEUMONIA DIAGNOSES: - Pneumonia due to Streptococcus pneumoniae - Chronic pain syndrome - Toxic gastroenteritis and colitis - Dysphagia, unspecified - Other specified anxiety disorders - remote computer terminal operator (current) use of oral hypoglycemic drugs - Paroxysmal atrial fibrillation - Chronic kidney disease, unspecified - Prsnl hx of TIA (TIA), and cereb infrc w/o resid deficits - Neuromuscular dysfunction of bladder, unspecified - 1 Type 2 diabetes mellitus w diabetic chronic kidney disease - remote computer terminal operator (current) use of aspirin - Adverse effect of unsp systemic antibiotic, init encntr - Chronic obstructive pulmonary disease, unspecified - 1 Type 2 diabetes mellitus with diabetic neuropathy, unsp - remote computer terminal operator (current) use of anticoagulants - 1 Hypertensive chronic kidney disease w stg -4/unsp chr kdny - Other retention of urine - Insomnia, unspecified - Allergy status to other antibiotic agents status - Gastro-esophageal reflux disease without esophagitis - Benign prostatic hyperplasia with lower urinary tract symp - Other fdc (current) drug therapy - Mild cognitive impairment, so stated - Athscl heart disease of [place] coronary artery w/o ang pctrs - Phantom limb syndrome with pain - Allergy status to oth drug/meds/biol subst status - Hyperlipidemia, unspecified - Unsp place in hospital as place - Pneumonia, unspecified organism - Acquired absence of right leg above knee - 1 Type 2 diabetes w diabetic peripheral angiopath w/o gangren 08/18/2018 22:38 [facility] Candy LEYVA TYPE: Surgical Services DIAGNOSES: - Unspecified atrial fibrillation - Essential (primary) hypertension - Acute cystitis without hematuria - 1 Type 2 diabetes mellitus with unspecified complications [email or web address]
[2019-04-19] MEDS ORDERED: DIFLUCAN150 MG PO (09:01)
== END 2019-04-19 14:25 | disposition home or self-care (01) ==
LOC: ED 08:06
DX: B37.81 Candidal esophagitis (principal); E78.5 Hyperlipidemia, unspecified; E11.40 Type 2 diabetes mellitus with diabetic neuropathy, unspecified; F32.9 Major depressive disorder, single episode, unspecified; I12.9 Hypertensive chronic kidney disease with stage 1 through stage 4 chronic kidney disease, or unspecified chronic kidney disease; E11.22 Type 2 diabetes mellitus with diabetic chronic kidney disease; N18.9 Chronic kidney disease, unspecified; I48.91 Unspecified atrial fibrillation; J44.9 Chronic obstructive pulmonary disease, unspecified; K21.9 Gastro-esophageal reflux disease without esophagitis; F17.200 Nicotine dependence, unspecified, uncomplicated; Z88.8 Allergy status to other drugs, medicaments and biological substances; Z88.1 Allergy status to other antibiotic agents; Z79.899 Other long term (current) drug therapy; Z79.82 Long term (current) use of aspirin; Z79.84 Long term (current) use of oral hypoglycemic drugs
CPT/HCPCS: 71046; 80053; 85025; 94640; 99284-25

== ENCOUNTER 2019-10-02 17:21 | Inpatient (IN) | payer MEDICARE, OTHER ==
[~2019-10-02] VITALS: Ht 180.3 cm; Wt 76.9 kg
[~2019-10-02 17:21] MED LIST changes: +DIFLUCAN150 MG PO
--- OUTSIDE RECORDS SUMMARY | 2019-10-02 17:24 | XMS ---
PreManage Notification: ALBERTO ROLLINS Security Cemetery Keeper Events No recent Security Events currently on file CRITERIA MET - History of Sepsis Dx CARE PROVIDERS LIZET SRIVASTAVA Nurse Practitioner 04/15/2019-Current PHONE: [phone] SHWETA BROWN Physician Handkerchief Sample Clerk 04/22/2019-Current PHONE: [phone] Rakel Wang Paying Teller/Plant Electrical Engineer 08/25/2016-Current PHONE: [phone] Bryanna has no Care Guidelines for this patient. E.D. VISIT COUNT (12 MO.) 3 LEONA Gil TOTAL 3 NOTE: Visits indicate total known visits. ED/UCC VISIT TRACKING (12 MO.) 10/02/2019 17:21 [facility] [place] TYPE: Emergency COMPLAINT: - WEAKNESS 04/19/2019 08:07 LE[facility] [place] TYPE: Emergency COMPLAINT: - COUGH, SWALLOWING PROBLEM DIAGNOSES: - Hypertensive chronic kidney disease with stage 1 through stag - penitentiary (current) use of oral hypoglycemic drugs - Gastro-esophageal reflux disease without esophagitis - Type 2 diabetes mellitus with diabetic neuropathy, unspecifie - Nicotine dependence, unspecified, uncomplicated - Hyperlipidemia, unspecified - Major depressive disorder, single episode, unspecified - Chronic kidney disease, unspecified - Unspecified atrial fibrillation - Chronic obstructive pulmonary disease, unspecified - Other national sales director (current) drug therapy - Candidal esophagitis - Type 2 diabetes mellitus with diabetic chronic kidney disease - Allergy status to other antibiotic agents status - penitentiary (current) use of aspirin - Allergy status to other drugs, medicaments and biological sub - Acute pharyngitis, unspecified - Cough 04/13/2019 09:02 [facility] [place] TYPE: Emergency COMPLAINT: - ALTERED LOC INPATIENT VISIT TRACKING (12 MO.) 04/13/2019 12:03 [facility] TYPE: Medical Surgical COMPLAINT: - PNEUMONIA DIAGNOSES: - Pneumonia due to Streptococcus pneumoniae - Chronic pain syndrome - Toxic gastroenteritis and colitis - Dysphagia, unspecified - Other specified anxiety disorders - penitentiary (current) use of oral hypoglycemic drugs - Paroxysmal atrial fibrillation - Chronic kidney disease, unspecified - Personal history of transient ischemic attack (TIA), and cere - Neuromuscular dysfunction of bladder, unspecified - Type 2 diabetes mellitus with diabetic chronic kidney disease - penitentiary (current) use of aspirin - Adverse effect of unspecified systemic antibiotic, initial en - Chronic obstructive pulmonary disease, unspecified - Type 2 diabetes mellitus with diabetic neuropathy, unspecifie - penitentiary (current) use of anticoagulants - Hypertensive chronic kidney disease with stage 1 through stag - Other retention of urine - Insomnia, unspecified - Allergy status to other antibiotic agents status - Gastro-esophageal reflux disease without esophagitis - Benign prostatic hyperplasia with lower urinary tract symptom - Other national sales director (current) drug therapy - Mild cognitive impairment, so stated - Atherosclerotic heart disease of [place] coronary artery witho - Phantom limb syndrome with pain - Allergy status to other drugs, medicaments and biological sub - Hyperlipidemia, unspecified - Unspecified place in hospital as the place of occurrence of t - Pneumonia, unspecified organism - Acquired absence of right leg above knee - Type 2 diabetes mellitus with diabetic peripheral angiopathy [email or web address]
--- NOTE | 2019-10-02 22:07 | NUR ---
PT ARRIVED TO ROOM 130 AT 2100 VIA STRETCHER, TRANSFERRED TO BED VIA DRAW SHEET. PT IS ALERT/ORIENTED X4, DENIES PAIN. ASSESSMENT LIMITED DUE TO PAPR PPE. PT DENIES CHEST PAIN, SOB, AND NAUSEA. PT ON ROOM AIR, SPO2 >90%. HR SINUS PER MONITOR. IV SITE INTACT AND PATENT. SKIN IS DRY AND FLAKY, VARIOUS SCATTERED SCABS AND SCARS NOTED TO SKIN. 3-4+ EDEMA TO LLE, PULSES PALPABLE. PT HAS RIGHT AKA. ATTENDS CHANGED UPON ARRIVAL FOR URINE INCONTINENCE. BLANCHABLE REDNESS NOTED TO COCCYX/BUTTOCKS, SKIN INTACT. REDNESS/APPARENT YEAST NOTED TO BILATERAL GROIN FOLDS, SKIN CLEANSED AND N.I.O. ENTERED FOR NYSTATIN POWDER. PT INSTRUCTED SPANISH INTERPRETER/TRANSLATOR LIGHT AND BED CONTROLS. NO FURTHER REQUESTS AT THIS TIME, CALL LIGHT WITHIN REACH.
--- NOTE | 2019-10-03 00:35 | NUR ---
PT SLEEPING, NO APPARENT DISTRESS. RESPIRATIONS EVEN AND UNLABORED, RR: 15, SPO2: 93% ON RA. HR: 88, SINUS PER MONITOR. URINAL EMPTIED. IV SITE REMAINS INTACT, IVF INFUSING WNL. WILL ALLOW FOR REST AND CONTINUE TO MONITOR.
--- NOTE | 2019-10-03 02:34 | NUR ---
PT AWAKE AT THIS TIME, IN TO CHECK ON HIM. REMAINS ON ROOM AIR, SPO2: 93%, CONTINUES TO DENY CHEST PAIN AND SOB. URINAL EMPTIED. REMAINS AFEBRILE. NO REQUESTS AT THIS TIME, CALL LIGHT WITHIN REACH.
--- NOTE | 2019-10-03 04:33 | NUR ---
PT APPEARS TO BE SLEEPING SOUNDLY. NO APPARENT DISTRESS. RESPIRATIONS EVEN AND UNLABORED. HR: 89, RR: 18, SPO2: 94% ON RA. WILL ALLOW FOR REST AND CONTINUE TO MONITOR.
--- NOTE | 2019-10-03 05:53 | NUR ---
IN TO DRAW MORNING LABS. WARM BLANKET PROVIDED PER REQUEST. URINAL EMPTIED. PT REMAINS AFEBRILE. REMAINS ON ROOM AIR AND CONTINUES TO DENY CHEST PAIN AND SOB. NO FURTHER REQUESTS AT THIS TIME. CALL LIGHT WITHIN REACH.
--- NOTE | 2019-10-03 07:30 | NUR ---
PATIENT SHIFT REPORT RECIEVED FROM STAFF ANALYST RN. PATIENT RESTING IN BED AT THIS TIME AND TOLERATING WELL. CALL LIGHT IN REACH. PATIENT CALLS APPROPRIATELY. WILL CONTINUE TO CLOSELY MONITOR.
--- NOTE | 2019-10-03 09:30 | NUR ---
PATIENT SHIFT ASSESSMENT COMP[LETED. UNABLE TO LISTEN TO BREATH SOUNDS, HEART TONES, OR BOWEL TONES D/T WEARING THE PAPR. EDEMA NOTED IN LEFT LOWER EXTREMITY. RIGHT ABOVE THE KNEE AMUPTATION NOTED. PATIENTIS ALERT AND ORIENTED AND FOLLOWS COMMANDS. ASSISTED PATIENT UP TO THE CHAIR WITH 1 PERSON STAND AND PIVOT AND PATIENT DID WELL. PATIENTS GOWN CHANGED. WARM WASH CLOTH PROVIDED. BREAKFAST ORDERED. VITALS COMPLETED. NO OTHER NEEDS AT THIS TIME. BENITO LLIGHT IN HAND. WILL CONTINUE TO CLISEKY MONITOR.
--- NOTE | 2019-10-03 10:15 | NUR ---
PATIENT IN THE CHAIR. PATIENT WORRKING ON BREAKFAST. BEDDING ON PATIENTS BED CHANGED. PATIENT DENEIS ANY OTHER NEEDS AT THIS TIME. WILL CONTINUE TO CLSOELY MONITOR.
--- NOTE | 2019-10-03 12:30 | NUR ---
PATIENT RESITNG IN THE CHAIR. A SNACK WAS ORDERED FOR PATIENT. PATIENT ISNT REALLY HUNGRY AT THIS TIME. PATIENT DENIES ANY NEEDS. URINAL EMPTIED. PATIENT ALSO HAS SOME INCONTINENCE/SPILLS UINAL. PATIENT CLEANED UP. WILL CONTINUE TO CLOSELY MONITOR.
--- NOTE | 2019-10-03 12:33 | NUR ---
SPOKE WITH PATIENTS DAUGHTER BY PHONE RACHEL [phone]. SHE STATES PATIENT LIVES AT [facility] S[place]. HE IS WHEELCHAIR BOUND, CAN TRANSFER WITH ASSIST. HE DOES NOT DRIVE. HE HAS SOME MEMORY ISSUES BUT MINOR. THE FACILITY DOES HIS MEDICATIONS. SHE PROVIDES TRANSPORTATION FOR HIM OR THE FACILITY ARRANGED TRANSPORT FOR HIM FOR APPOINTMENTS. HIS PCP IS CAROLA HINDS AT THE [facility]. THEY INTEND FOR HIM TO RETURN TO HIS HOME THERE. HE [facility] [place] BEFORE. GAVE HER THE DIRECT NUMBER TO NURSES STATION IN ICU FOR HER TO CALL AND CHECK UP ON HIM. QUESTIONS ANSWERED.
--- NOTE | 2019-10-03 14:42 | NUR ---
THIS RN IN TO GIVE MEDICATION. PATIENT BACK TO BED WITH PHYSICAL THERAPIES ASSISTANCE. PATIENT WAS ABLE TO DO MOST OF IT ON HIS OWN. PATIENT RESITNG I NBED AT THSI TIME. FRESH WATER AT THE BEDSIDE. NO OTHER NEEDS AT THIS TIME. WILL CONTINUE TO CLOSELY MONITOR.
--- NOTE | 2019-10-03 15:10 | NUR ---
Patient arrives by bed with CCU staff for admission to med-surg room 116. Assessment completed. Patient currently denies pain. VS obtained. Call light in reach. Bed rails up X2.
--- NOTE | 2019-10-03 16:45 | NUR ---
report given to xenia rapp on [facility]. patient resting in bed and will transfer in his bed. all questions answered. no other needs at this time. will continue to closely monitor.
--- NOTE | 2019-10-03 17:21 | NUR ---
PATIENT TRANSFERED TO ROOM 116 WITH THIS RN. ALL BELONGIGNS SENT WITH PATIENT. PLACED CLEAN SHEET OVER PATIENT AND MASK WORN. NO OTHER NEEDS AT THIS TIME.
--- NOTE | 2019-10-03 21:09 | NUR ---
pt awake watching tv, irritable affect, easily redirectable. Waiting for Covid reesults, on Isolation precautions. On room air, semi cooperative with assessment, required several cues to do assessment and vitals, sl patent L wrist area. helped turn and repositioned in bed. R AKA, edema L ankle nad feet, scratches/scabbed over healing L lower leg, elevated. spilled urine when using urinal, gown and linen changed after several cues, skin care done, nystatin powder to buttocks. fresh fluids at bedsice, cbg 126, no coverage needed. HS med education given "You do not have to tell me what they are for or how much I take, I know what I take." I just want to sleep, and you guys bother me a lot. bed alarm on. call light at bedside, calmer.
--- NOTE | 2019-10-04 00:44 | NUR ---
RESTING, EYES CLOSED, NO RESP DISTRESS, CALL LIGHT AND FLUIDS ATBEDSIDE
--- NOTE | 2019-10-04 02:04 | NUR ---
resting, eyes closed, no resp distress. onroom air, call light and fluids at bedside, bed alarm on. coant on isolation precautions until covid results
--- NOTE | 2019-10-04 02:37 | NUR ---
pt incontinent of urine, gown and total bed linen change done. skin care done. call light and fluids at bedside, declines to have attends on and to elevate legs. call light and lfuids at bedside. Coop with assessment
--- NOTE | 2019-10-04 04:48 | NUR ---
Still waiting for Covid results. ON Airborne/Respiratory Isolation. pt has slept off and on. On room air, no resp distress. Irritable mood and requires several cues to process instructions. Forgetful at times, SL patent. R AKA stump, 3+ pitting edema ankles and feet, declines to have legs elevated when in bed. healing scabbs over left LE. Tolerating diet and fluids well. CBG was 127, received no sliding scale coverage. No c/o pain , no c/o N/v. Does uses urinal plus has been incontinent of urine several times. skin care and barrier cream applied. red areas between folds Nystatin powder applied scheduled. No cough this shift. Temp 99.0 (oral) at begining of shift no further, uses call light off and on. fever. Continue to reinforce
--- NOTE | 2019-10-04 06:01 | NUR ---
pt used call light, incontinent of md size soft bm, incontinent of urine too, skin carfe done, gown and total bed linen change done. Pt up to chair with 2 person assit and fww , unsteady. Up in chair at this time, fresh water given legs elevated and warm blanket given, afebrile at this time, AM care done. Watching tv, pleasant and cooperative, much better affect. states he is going home today. Call light at bedside
--- NOTE | 2019-10-04 07:06 | NUR ---
Recieved report from Denisa Pollock RN. Patient currently sitting up in recliner, eyes closed. Call light in reach.
[2019-10-04] MEDS ORDERED: FLUTICASONE PRO16 GM NAS (07:55)
--- NOTE | 2019-10-04 08:23 | NUR ---
IN TO DO AM BLOODSUGAR CHECK ON PATIENT, PATIENT HAD BED AND CHAIR UNLOCKED AND WAS USING RECLINER A WHEELCHAIR TO ROLL HIMSELLF AROUND THE ROOM, WAS VERY UPSET ABOUT THE ALARM SOUNDING IN HIS ROOM(UNLOCKED BED) VITALS AND I&OS CHARTED. PATIENT BED AND CHAIR LOCKED AND CALL LIGHT IN REACH. HALEY KILGORE IN ROOM, BREAKFAST ORDERED
--- NOTE | 2019-10-04 08:40 | NUR ---
ASSESSMENT COMPLETED. DENIES PAIN. STATES HE DID NOT REST DURING THE NIGHT. REQUESTS IF HE IS SLEEPING TODAY TO LEAVE HIM ALONE. ELIZA CARE COMPLETED AND NYSTATIN APPLIED. TAKES MEDICATIONS WITHOUT DIFFICULTY. CALL LIGHT IN REACH, SITTING UP IN CHAIR. DENIES OTHER NEEDS AT THIS TIME.
[2019-10-04] MEDS ORDERED: LEVAQUIN750 MG PO (10:33)
--- NOTE | 2019-10-04 10:36 | NUR ---
SPOKE WITH [facility] STAFF. THEY DO REQUIRE NEGATIVE COVID SCREEN TO BE ABLE TO ACCEPT PATIENT BACK. IF THIS COMES BACK, THEY STATE TO CALL HIS DAUGHTER RACHEL AND SHE WILL BRING HIM BACK. HE CAN RETURN ON WEEKEND IF RESULT DOESN'T COME BACK TODAY.
--- NOTE | 2019-10-04 10:55 | NUR ---
This nurse standing in vergara outside patient room. Patient opens door to room. States he needs help. Informed he needs to return to room and shut the door, this nurse will be in shortly. [place] self around room in recliner. This nurse informs patient his test results are still pending so he needs to remain in room with his door shut and utilize call light for assistance. Verbalizes understanding. States he wants his IV taped better. IV secured. States he would also like to have bandaid to right index finger changed. Bandaid changed per patient request. Small laceration noted, no signs of infection at this time. Denies other needs. Call light in reach.
--- NOTE | 2019-10-04 12:25 | NUR ---
PATIENT CONTINUES TO USE RECLINER WHEELCHAIR TO MOVE AROUND THE ROOM. STAFF REPEATEDLY REMINDING PATIENT THE IMPORTANCE OF KEEPING HIS DOOR SHUT AND REMINDING HIM TO USE CALL LIGHT FOR ASSTANCE. PATIENT AGREES, YET THE SAME BEHAVIORS CONTINUES. THIS WASTE WATER PLANT OPERATOR WILL CONTINUE TO MONITOR DOOR AND SAFETY OF PATIENT. VITALS AND BLOODSUGAR CHARTED. CALL LIGHT WITHIN REACH.
--- NOTE | 2019-10-04 15:00 | NUR ---
THIS TRUST MAIL CLERK NOTICED PATIENT IN BR, WASHING HIMSLEF. LARGE AMOUNT OF BLOOD THROUGHOUT ROOM AND ON PUENTES. PATIENT REPORTS HE ACCIDENTLY PULL IV OUT OF HIS HAND. BLEEDING HAS STOPPED, COBAND WRAPPED. THIS TRUST MAIL CLERK CLEANED ROOM WHILE PATIENT CONTINUED TO APPOLOGIZE AND CLEAN HIMSELF. GOWN AND ABSORBANT PAD IN CHAIR CHANGED, INCONTINENT OF URINE. LUNCH ORDERED. PATIENT CONTINUES WHEEL HIMSELF AROUND ROOM IN RECLINER, HALEY KILGORE IN ROOM. PATIENT CONTINUES TO OPEN DOOR TO SPEAK TO STAFF(ASKING DAUGHTERS WORK AND HOME #) LUNCH IS DELIVERED AND PATIENT IS HAPPY, CALL LIGHT ON TABLE NEAR PATIENT.
--- NOTE | 2019-10-04 15:02 | NUR ---
Patient wheeling self around room in wheelchair. ELISSA Hernandez, informs this nurse patient has pulled IV out of hand. Catheter observed and intact. Bleeding controlled with pressure dressing. Gown changed. Patient requests steak and english fries at this time. Continues to wheel self to door, open it, and talk to staff in spite of multiple staff members directing him to utilize his call light. Assessment completed. No changes from AM assessment, except no IV in place.
--- NOTE | 2019-10-04 16:12 | NUR ---
Recieved call from DON, group completing Covid 19 testing. State they are having issues with machine and may not have results for patient until late tonight or early tomorrow morning.
--- NOTE | 2019-10-04 17:00 | NUR ---
This nurse walks by room, sees empty chair in bathroom. Upon entering room, patient sitting on the floor in bathroom. Looks up and smiles at nurse. Nurse asks how long patient has been on the floor, states "about 15 minutes." Informed patient he has a call light right by his head, looks at it, laughs and states "I though you'd all gone already." Denies hitting head, neuros intact. Denies pain anywhere. Small abrasion to left knee noted, approximately 3cm in diameter. Gait belt applied. Assist to stand with 4 person assist to toilet, pivot transfer to recliner. Patient moved back into room, feet elevated call light given and instructed to call for assist and not to get self up any longer. Verbalizes understanding.
--- NOTE | 2019-10-04 17:07 | NUR ---
Patient has feet down, wheeling self around room. Patient instructed once again, not to utililze recliner as a wheelchair. Reminded frequently today not to use recliner as wheelchair. Instructed if he needs assistance to call staff using call light.
--- NOTE | 2019-10-04 17:20 | NUR ---
Patient continues using recliner as a wheelchair. VS obtained, patient transferred from wheelchair to bed, bed alarm activated. Call light given to patient and instructed to use it for assistance. Patient states he has been transferring self to toilet all day without incident to urinate multiple times. Informed him, his lack of his prosthetic leg decreases his balance and he needs to call to get up with assistance to prevent further falls. Verbalizes understanding.
--- NOTE | 2019-10-04 17:21 | NUR ---
2 PA PATIENT BACK TO BED, REMOVING CHAIR FOR PATIENTS SAFETY. PATIENT HESITANT TO AGREE, BUT IN GOOD SPIRITS. BLOOD SUGAR, VITALS AND I&OS CHARTED. CALL LIGHT IN REACH.
--- NOTE | 2019-10-04 17:31 | NUR ---
Dr. Ragland informed of patient fall. No new orders at this time.
--- NOTE | 2019-10-04 17:40 | NUR ---
Patient has been in chair all day. Using recliner as wheelchair, in spite of multiple prompts not to wheel self around in it, opens door to look in hallway frequently. Staff redirects him into room each time. Instructed awaiting labs. Pulls own IV out today after he says he was adjusting tape at site. Discharge orders obtained, but unable to DC patient to [facility] until negative Covid results are recieved. Continue awaitng Covid results from [facility]. Continues on room air.
--- NOTE | 2019-10-04 19:28 | NUR ---
SHIFT REPORT RECIEVED FROM MAGUI DE LEON. PT RESTING IN BED, WATCHING TV.BED ALARM ON. NO NEEDS AT THIS TIME. CALL LIGHT IN REACH.
--- NOTE | 2019-10-04 21:23 | NUR ---
ASSESSMENT COMPLETED. LUNGS CLEAR IN UPPER LOBES, DIMINISHED IN LOWER LOBES. BOWEL TONES ACTIVE, ABD SOFT, NONTENDER. CBG 120, NO COVERAGE NEEDED. REDNESS NOTED IN GROIN, MED PROVIDED. NUMBNESS NOTED IN LLE, PULSE INTACT. NO EDEMA NOTED. CAPILLARY REFILL WNL. PT DENIES PAIN OR SOB. NO OTHER NEEDS AT THIS TIME. CALL LIGHT IN REACH.
--- NOTE | 2019-10-04 22:36 | NUR ---
PT RESTING IN BED, EYES CLOSED. RR EVEN, UNLABORED. BED ALARM ON. CALL LIGHT IN REACH.
--- NOTE | 2019-10-04 22:46 | NUR ---
WILDLIFE CONSERVATION OFFICER ROUNDING NOTE. PT RESTING IN BED AWAKE, WAVES FROM DOORWAY. CALL LIGHT IN REACH.
--- NOTE | 2019-10-04 23:31 | NUR ---
PATIENT'S BED ALARM GOES OFF, THIS BUSINESS MANAGEMENT INTERN ASKED PATIENT TO REMAIN SITTING AT BED FROM DOORWAY. PATIENT ANGRILY YELLS TO "HURRY UP". PATIENT HAD LARGE VOID ON BED, UNABLE TO GET TO BEDSIDE COMMODE IN TIME. PATIENT PIVOTS TO BEDSIDE COMMODE AND BACK TO BED. LINENS CHANGED, GOWN CHANGED. PATIENT EXPRESSES FRUSTRATION, THIS BUSINESS MANAGEMENT INTERN EXPLAINED TO PATIENT THE IMPORTANCE OF PROTECTING OTHERS WITH PPE. PATIENT STATES "I DONT WANT TO SIT HERE ALL DAY". THIS BUSINESS MANAGEMENT INTERN EXPLAINED THAT IT WAS THE MIDDLE OF THE NIGHT STILL. PATIENT CALMED DOWN, REPOSITIONED IN BED AND WATCHING TV. PATIENT STATES HE HAS NO OTHER NEEDS AT THIS TIME.
--- NOTE | 2019-10-05 01:20 | NUR ---
PT RESTING IN BED, EYES CLOSED. RR EVEN, UNLABORED. BED ALARM ON. CALL LIGHT IN REACH.
--- NOTE | 2019-10-05 03:30 | NUR ---
PT RESTING IN BED, EYES CLOSED. BED ALARM ON. CALL LIGHT IN REACH.
--- NOTE | 2019-10-05 05:20 | NUR ---
PT RESTING IN BED, EYES CLOSED. RR EVEN, UNLABORED. BED ALARM ON. CALL LIGHT IN REACH.
--- NOTE | 2019-10-05 05:50 | NUR ---
PT ASSESSMENT COMPLETED. LUNGS CLEAR IN UPPER LOBES, DIMINISHED IN LOWER LOBES. TRACE EDEMA AND NUMBNESS IN LLE. RENESS NOTED IN GROIN FOLDS. VS AND I&O COMPLETED. PT EDUCATED ON HOW TO CALL IN HIS BREAKFAST ORDER. BEDDING AND GOWN CHANGED. SKIN TEAR NOTED ON LLE. NO OTHER NEEDS AT THIS TIME. CALL LIGHT IN REACH.
--- NOTE | 2019-10-05 05:57 | NUR ---
PT SLEPT WELL THIS SHIFT. VSS. UOS. REDNESS TO GROIN AREA UNCHANGED, NYSTATIN PROVIDED. PT TOLERATED MEDICATION WELL. CBG 120, REQUIRED NO COVERAGE. LEFT LEG EDEMA UNCHANGED.
--- NOTE | 2019-10-05 07:18 | PATH ---
[facility] [address] [facility] [place], [place] [address] Signed ORDERING PHYSICIAN: Kashif Ragland MD PATIENT NAME: ALBERTO ROLLINS GENDER: Duyen : 1945 SPECIMEN(S): MOLECULAR PATHOLOGY RESULTS: SARS-CoV-2 Not Detected ADDITIONAL NOTES.: The [place] Fusion SARS-CoV-2 Assay is a multiplex real-time PCR (RT-PCR) in vitro diagnostic test intended for the qualitative detection of RNA from SARS-CoV-2 from individuals who meet COVID-19 clinical and/or epidemiological criteria. In general, SARS-CoV-2 RNA can be detected during the acute phase of infection. Positive results indicate the presence of SARS-CoV-2 RNA. Clinical correlation with patient history and other diagnostic information is necessary to determine patient infection status. Positive results do not rule out bacterial infection or co-infection with other viruses. Negative results do not preclude SARS-CoV-2 infection and should not be used as the sole basis for patient management decisions. Negative results must be combined with other clinical observations, patient history, and epidemiological information. The [place] Fusion SARS-CoV-2 Assay is not yet approved or cleared by the [place] FDA. When there are no FDA-approved or cleared tests available, and other criteria are met, FDA can make tests available under an emergency access mechanism called an Emergency Use Authorization (EUA). The EUA for this test is supported by the [place] Health and Human Service's (HHS's) declaration that circumstances exist to justify the emergency use of in vitro diagnostics for the detection and/or diagnosis of the virus that causes COVID-19. This EUA will remain in effect for the duration of the COVID-19 declaration justifying emergency of IVDs, unless it is terminated or revoked by FDA, after which the test may no longer be used. The [place] Fusion SARS-CoV-2 Assay is for use only under EUA in US laboratories certified under the Clinical Laboratory Improvement Amendments of 1988 (CLIA) to perform high complexity tests. [facility] is certified under CLIA to perform high complexity PATIENT NAME: ALBERTO ROLLINS PATHOLOGY DATE OF : 45 REPORT #: [id number] PHYSICIAN: LÓPEZ DE LOS SANTOS PCP: CAROLA HINDS REPORT IS CONFIDENTIAL AND NOT TO BE RELEASED WITHOUT AUTHORIZATION [address] [address] Signed clinical laboratory testing. PERFORMING LABORATORY.: Molecular testing was performed by [facility] [address] [place], [place] [address] [address] (Glazier Helper: Andrews Santana D.O.; CLIA#: [id number]) Diagnostician: System Interface Pathologist Electronically Signed 10/05/2019 Copies: ~ PATIENT NAME: ALBERTO ROLLINS PATHOLOGY DATE OF : 45 REPORT #: [id number] PHYSICIAN: LÓPEZ DE LOS SANTOS PCP: CAROLA HINDS REPORT IS CONFIDENTIAL AND NOT TO BE RELEASED WITHOUT AUTHORIZATION
--- NOTE | 2019-10-05 09:55 | NUR ---
PATIENT IN BED WATCHING TV. FRESH WATER GIVEN. CALL LIGHT IN REACH. NO FURTHER NEEDS AT THIS TIME.
--- NOTE | 2019-10-05 10:18 | NUR ---
Called [facility] to inform them patient will be discharged today. Attempt to contact daughter, Tonia Tavarez, to inform her patient will be discharged. No answer. Left message to have her please call this nurse back.
--- NOTE | 2019-10-05 10:35 | NUR ---
Spoke with daughter, Tonia, on the phone. States she will be here to pick patient up at 1130 this AM.
--- NOTE | 2019-10-05 11:16 | NUR ---
Report called to Lindy at [facility].
--- NOTE | 2019-10-05 11:26 | NUR ---
Taken to private vehicle to be DC'd to [facility] in wheelchair by ELISSA Masters/[employer].
== END 2019-10-05 11:26 | disposition home or self-care (01) | DRG 871 ==
LOC: ED 17:21 → MS 20:03 → CCU 20:03 → MS 10-03 17:10
PROVIDERS: ADMIT Student in an Organized Health Care Education/Training Program
DX: A40.9 Streptococcal sepsis, unspecified (principal); J15.4 Pneumonia due to other streptococci; R65.20 Severe sepsis without septic shock; Z20.828 Contact with and (suspected) exposure to other viral communicable diseases; F17.210 Nicotine dependence, cigarettes, uncomplicated; K21.9 Gastro-esophageal reflux disease without esophagitis; I48.0 Paroxysmal atrial fibrillation; I10 Essential (primary) hypertension; I25.10 Atherosclerotic heart disease of native coronary artery without angina pectoris; E11.9 Type 2 diabetes mellitus without complications; E78.5 Hyperlipidemia, unspecified; N40.0 Benign prostatic hyperplasia without lower urinary tract symptoms; F41.8 Other specified anxiety disorders; G89.4 Chronic pain syndrome; G54.6 Phantom limb syndrome with pain; Z66 Do not resuscitate; Z88.8 Allergy status to other drugs, medicaments and biological substances; Z88.1 Allergy status to other antibiotic agents; Z79.01 Long term (current) use of anticoagulants; Z79.84 Long term (current) use of oral hypoglycemic drugs; Z79.82 Long term (current) use of aspirin; Z79.899 Other long term (current) drug therapy
CPT/HCPCS: 71045; 80048; 80053; 81001; 82010; 83605; 83735; 85025; 94640; 94667; 96361; 96374; 96375; 97162; 99285-25; C9803; J0456; J0696; J7030; J7060; J7121

== ENCOUNTER 2020-08-21 18:43 | Emergency (ER) | payer MEDICARE, OTHER ==
[~2020-08-21] VITALS: Ht 180.3 cm; Wt 31.0 kg
[~2020-08-21 18:43] MED LIST changes: +FLUTICASONE PRO16 GM NAS; +LEVAQUIN750 MG PO
[2020-08-21] MEDS ORDERED: CEPHALEXIN500 MG PO (23:16)
== END 2020-08-21 23:58 | disposition home or self-care (01) ==
LOC: ED 18:43
DX: N39.0 Urinary tract infection, site not specified (principal); E11.40 Type 2 diabetes mellitus with diabetic neuropathy, unspecified; E78.00 Pure hypercholesterolemia, unspecified; E78.5 Hyperlipidemia, unspecified; I12.9 Hypertensive chronic kidney disease with stage 1 through stage 4 chronic kidney disease, or unspecified chronic kidney disease; I48.91 Unspecified atrial fibrillation; J44.9 Chronic obstructive pulmonary disease, unspecified; K21.9 Gastro-esophageal reflux disease without esophagitis; N18.9 Chronic kidney disease, unspecified; E11.22 Type 2 diabetes mellitus with diabetic chronic kidney disease; F17.200 Nicotine dependence, unspecified, uncomplicated; Z88.8 Allergy status to other drugs, medicaments and biological substances; Z88.1 Allergy status to other antibiotic agents; Z79.899 Other long term (current) drug therapy; Z79.82 Long term (current) use of aspirin; Z79.84 Long term (current) use of oral hypoglycemic drugs
CPT/HCPCS: 83605; 96365; 99284-25; J0696; J7030

== ENCOUNTER 2020-12-18 09:58 | Emergency (ER) | payer MEDICARE, OTHER ==
[~2020-12-18] VITALS: Ht 180.3 cm; Wt 76.4 kg
[2020-12-18] MEDS ORDERED: FERROUS GLUCON324 M1 PO (10:47)
[2020-12-18] MEDS ORDERED: PSYLLIUM HUSK1 GM MISC (10:50)
== END 2020-12-18 14:30 | disposition home or self-care (01) ==
LOC: ED 09:58
DX: U07.1 COVID-19 (principal); E11.40 Type 2 diabetes mellitus with diabetic neuropathy, unspecified; E78.00 Pure hypercholesterolemia, unspecified; E78.5 Hyperlipidemia, unspecified; I48.91 Unspecified atrial fibrillation; E11.22 Type 2 diabetes mellitus with diabetic chronic kidney disease; I12.9 Hypertensive chronic kidney disease with stage 1 through stage 4 chronic kidney disease, or unspecified chronic kidney disease; J44.9 Chronic obstructive pulmonary disease, unspecified; K21.9 Gastro-esophageal reflux disease without esophagitis; F17.200 Nicotine dependence, unspecified, uncomplicated; Z88.5 Allergy status to narcotic agent; Z88.6 Allergy status to analgesic agent; Z88.8 Allergy status to other drugs, medicaments and biological substances; Z88.1 Allergy status to other antibiotic agents; Z79.01 Long term (current) use of anticoagulants; Z79.82 Long term (current) use of aspirin; Z79.84 Long term (current) use of oral hypoglycemic drugs; Z79.899 Other long term (current) drug therapy
CPT/HCPCS: 71045; 80053; 81001; 85025; 99285-25; J7040; J7050; M0243; Q0244

== ENCOUNTER 2021-05-10 11:24 | Inpatient (IN) | payer MEDICARE, OTHER ==
[~2021-05-10] VITALS: Ht 180.3 cm; Wt 81.4 kg
[~2021-05-10 11:24] MED LIST changes: +FERROUS GLUCON324 M1 PO; +PSYLLIUM HUSK1 GM PO
[2021-05-11] MEDS ORDERED: ACIDOPHILUS 17175 MG PO (12:33)
--- NOTE | 2021-05-11 13:47 | EKG ---
[facility] [address] [facility] [place] [address] Signed Normal sinus rhythm Right bundle branch block Abnormal ECG When compared with ECG of 13-APR-2019 09:28, Right bundle branch block is now present Confirmed by JESUS IVY MD ([id number]) on 05/11/2021 1:47:40 PM Electronically Signed By: JESUS IVY MD 05/11/21 1347 PATIENT NAME: ALBERTO ROLLISN Electrocardiogram DATE OF : 45 PHYSICIAN: JESUS IVY MD REPORT #: [id number] REPORT IS CONFIDENTIAL AND NOT TO BE RELEASED WITHOUT AUTHORIZATION
[2021-05-11] MEDS ORDERED: VITAMIN C500 M1 PO (13:55)
[2021-05-12] MEDS ORDERED: CEFPODOXIME PR200 MG PO (10:52)
== END 2021-05-12 13:30 | disposition home or self-care (01) | DRG 177 ==
LOC: ED 11:24 → MS 15:12
PROVIDERS: ADMIT Internal Medicine; ATTEND Internal Medicine
DX: J15.6 Pneumonia due to other Gram-negative bacteria (principal); G93.41 Metabolic encephalopathy; I95.9 Hypotension, unspecified; R50.9 Fever, unspecified; E11.9 Type 2 diabetes mellitus without complications; Z88.8 Allergy status to other drugs, medicaments and biological substances; Z88.1 Allergy status to other antibiotic agents; I48.0 Paroxysmal atrial fibrillation; Z20.822 Contact with and (suspected) exposure to COVID-19; F32.A Depression, unspecified; N40.0 Benign prostatic hyperplasia without lower urinary tract symptoms; R53.83 Other fatigue; K21.9 Gastro-esophageal reflux disease without esophagitis; E78.5 Hyperlipidemia, unspecified; I10 Essential (primary) hypertension; Z79.84 Long term (current) use of oral hypoglycemic drugs
CPT/HCPCS: 36415; 51701; 71045; 71260; 80048; 80053; 81001; 83036; 83605; 83735; 83880; 85025; 87040; 87070; 87205; 93005; 93010; 99285-25; J0456; J0696; J7060; U0003

== ENCOUNTER 2022-01-18 14:01 | Emergency (ER) | payer OTHER, MEDICARE ==
[~2022-01-18] VITALS: Ht 180.3 cm; Wt 76.4 kg
[~2022-01-18 14:01] MED LIST changes: +ACIDOPHILUS 17175 MG PO; +CEFPODOXIME PR200 MG PO; +VITAMIN C500 M1 PO
--- NOTE | 2022-01-19 15:32 | EKG ---
[facility] [address] [facility] [place] [address] Signed Sinus tachycardia with occasional premature ventricular complexes Nonspecific ST abnormality Abnormal ECG Confirmed by JESUS IVY MD ([id number]) on 01/19/2022 3:31:58 PM Electronically Signed By: JESUS IVY MD 01/19/22 1532 PATIENT NAME: ALBERTO ROLLINS Electrocardiogram DATE OF : 45 PHYSICIAN: JESUS IVY MD REPORT #: [id number] REPORT IS CONFIDENTIAL AND NOT TO BE RELEASED WITHOUT AUTHORIZATION
== END 2022-01-19 20:15 | disposition short-term general hospital (02) ==
LOC: ED 14:01
DX: J94.2 Hemothorax (principal); R59.0 Localized enlarged lymph nodes; J94.8 Other specified pleural conditions; E11.40 Type 2 diabetes mellitus with diabetic neuropathy, unspecified; Z20.822 Contact with and (suspected) exposure to COVID-19; E78.00 Pure hypercholesterolemia, unspecified; E78.5 Hyperlipidemia, unspecified; F41.9 Anxiety disorder, unspecified; F32.9 Major depressive disorder, single episode, unspecified; G31.84 Mild cognitive impairment of uncertain or unknown etiology; G47.00 Insomnia, unspecified; I48.91 Unspecified atrial fibrillation; E11.51 Type 2 diabetes mellitus with diabetic peripheral angiopathy without gangrene; J44.9 Chronic obstructive pulmonary disease, unspecified; K21.9 Gastro-esophageal reflux disease without esophagitis; E11.22 Type 2 diabetes mellitus with diabetic chronic kidney disease; I12.9 Hypertensive chronic kidney disease with stage 1 through stage 4 chronic kidney disease, or unspecified chronic kidney disease; N18.9 Chronic kidney disease, unspecified; N40.1 Benign prostatic hyperplasia with lower urinary tract symptoms; R33.8 Other retention of urine; N31.9 Neuromuscular dysfunction of bladder, unspecified; I69.391 Dysphagia following cerebral infarction; R13.10 Dysphagia, unspecified; F17.200 Nicotine dependence, unspecified, uncomplicated; Z88.8 Allergy status to other drugs, medicaments and biological substances; Z88.1 Allergy status to other antibiotic agents; Z89.611 Acquired absence of right leg above knee; Z79.899 Other long term (current) drug therapy; Z79.01 Long term (current) use of anticoagulants
CPT/HCPCS: 36415; 71045; 71260; 80053; 81001; 83605; 85025; 87040; 87502; 93005; 93010; 99285-25; C9803; Q9967; U0003